=== PATIENT | female | born 1945 | race Asian ===

== ENCOUNTER 2019-02-14 13:53 | Emergency (ER) | payer MEDICARE, MEDICAID ==
[~2019-02-14] VITALS: Ht 160 cm; Wt 61.2 kg
--- NOTE | 2019-02-14 13:54 | Emergency Room Report ---
History of Present Illness General Chief Complaint: Multiple Trauma/Fall Source: Patient Present Illness HPI Patient is a 73-year-old female who presented after a mechanical fall. Patient had no loss of consciousness. She reportedly lost her balance while trying to fruit picker an object. She has prior history of some mild dementia. Unsure of her last tetanus vaccine. Denies any neck pain. Reports having some mild pain to the left side of her head. She struck her head on concrete. She denies any severe headache or neck pain or low back pain. She had been ambulatory after the fall. Allergies: Coded Allergies: No Known Allergies (Unverified , 02/14/19) Patient History Past Medical History: see triage record Last Menstrual Period: N/A Reviewed Nursing Documentation: PMH: Agreed; PSxH: Agreed Nursing Documentation-PMH Hx Diabetes: Yes History Of Psychiatric Problem: Yes - Dementia Review of Systems All Other Systems: negative except mentioned in HPI Physical Exam Vital Signs Date Time Temp Pulse Resp B/P (MAP) Pulse Ox O2 Delivery O2 Flow Rate FiO2 02/14/19 13:45 98.1 72 15 126/74 (91) 98 Room Air Sp02 EP Interpretation: reviewed, normal General Appearance: normal inspection, well appearing, no apparent distress, alert, GCS 15 Head: atraumatic ENT: normal ENT inspection, hearing grossly normal, normal voice Neck: normal inspection, full range of motion, supple, no bony tend Respiratory: normal inspection, lungs clear, normal breath sounds, no respiratory distress, no retraction, no wheezing Cardiovascular #1: regular rate, rhythm, no edema Gastrointestinal: normal inspection, normal bowel sounds, non tender, soft, no guarding, no hernia Genitourinary: no CVA tenderness Musculoskeletal: normal inspection, back normal, normal range of motion Neurologic: alert, motor strength/tone normal, printmaker III-XII nml as tested, EOM palsy, oriented x3, responsive, speech normal, normal inspection Psychiatric: normal inspection, judgement/insight normal, mood/affect normal Skin: laceration - Superficial laceration to the left side of her forehead 2 cm , other Procedures Laceration/Wound Repair Laceration/Wound Repair : Consent: Verbal Wound Location: face Wound's Depth, Shape: superficial Wound Length (cm): 2 Wound Explored: clean Irrigated w/ Saline (ccs): 30 Wound Repaired With: Dermabond Layer Closure?: No Patient Tolerated: Well Complications: None Medical Decision Making Diagnostic Impression: Primary Impression: Fall ER Course Patient presented after a fall. Differential diagnosis include was not limited to fracture, contusion, skull fracture among others. Because of complexity of patient's case imaging studies were ordered. patient was noted to have injury to her head. Has small laceration to the left side of her scalp. CT imaging showed atrophic changes without evident fracture or intracranial hemorrhage. She was not noted to be on anticoagulation. Patient laceration was closed with Dermabond. Patient tolerated this well. Patient be discharged home. She is to follow-up for recheck in 3 to 4 days. She is to return if she has any worsening of mental status, persistent vomiting, or other concerns. Last Vital Signs Date Time Temp Pulse Resp B/P (MAP) Pulse Ox O2 Delivery O2 Flow Rate FiO2 02/14/19 13:45 98.1 72 15 126/74 (91) 98 Room Air Status: improved Disposition: HOME, SELF-CARE Condition: Stable Dino Guerra MD Feb 14, 2019 13:54
[2019-02-14 13:55] VITALS: BP 126/74
--- NOTE | 2019-02-14 13:58 | NUR ---
ED Nurse Note: PT ARRIVED WITH RA 29 D/T SLIP AND FALL AT [facility]. FALL WITNESS BY [facility] STAFF. PT HAS LEFT UPPER HEAD LACERATION ABOUT HALF AN INCH. SITE IS NOT ACTIVELY BLEEDING. FAMILY AT BEDSIDE. PT IS AOX4
[2019-02-14] MEDS ORDERED: Tetanus/Diptheria/Pertussis IM ONE (14:15)
[2019-02-14] MEDS ORDERED: Acetaminophen 500mg (ES) tab ORAL ONE (14:15)
--- NOTE | 2019-02-14 14:19 | NUR ---
ED Nurse Note: PT TAKEN FOR HEAD CT
--- NOTE | 2019-02-14 14:26 | NUR ---
ED Nurse Note: PT RETURNED FROM CT, CT COMPLETED
[2019-02-14] MEDS ORDERED: UNOBMED (14:38)
--- NOTE | 2019-02-14 14:41 | NUR ---
ED Nurse Note: pt began saturating at 88%, placed pt on 2 L nasal cannula.
--- NOTE | 2019-02-14 15:18 | Diagnostic Imaging Report ---
EXAM: CT Head Without Intravenous Contrast CLINICAL HISTORY: PAIN TECHNIQUE: Axial computed tomography images of the head/brain without intravenous contrast. CTDI is 62.70 mGy and DLP is 1300.90 mGy-cm. One or more of the following dose reduction techniques were used: automated exposure control, adjustment of the mA and/or kV according to patient size, use of iterative reconstruction technique. COMPARISON: No relevant prior studies available. FINDINGS: Brain: Generalized parenchymal volume loss, likely age-related. Periventricular white matter hypodensities. No evidence of acute intracranial hemorrhage. No mass effect or midline shift. Ventricles: Unremarkable. No ventriculomegaly. Bones/joints: Unremarkable. No acute fracture. Soft tissues: Unremarkable. Sinuses: Unremarkable as visualized. No acute sinusitis. Mastoid air cells: Unremarkable as visualized. No mastoid effusion. Vascular: Atherosclerotic calcifications within the cavernous portions of bilateral ICAs. IMPRESSION: 1. No acute intracranial findings. 2. Periventricular white matter hypodensities, likely related to chronic small vessel disease changes. 3. Generalized cerebral parenchymal volume loss, likely age-related.
[2019-02-14] MEDS ORDERED: ACETAMINOPHEN500 M3 ORAL (15:30)
--- NOTE | 2019-02-14 15:32 | Diagnostic Imaging Report ---
EXAM: XR Left Wrist Complete, 3 or More Views CLINICAL HISTORY: PAIN TECHNIQUE: Frontal, lateral and oblique views of the left wrist. COMPARISON: No relevant prior studies available. FINDINGS: Bones/joints: No acute displaced fracture or dislocation identified. Degenerative narrowing at the thumb carpometacarpal joint. Degenerative narrowing at the radiocarpal joint. Diffuse osseous demineralization/osteopenia. Soft tissues: Unremarkable. No radiopaque foreign body. IMPRESSION: 1. No acute displaced fracture or dislocation identified. 2. Degenerative narrowing at the thumb carpometacarpal joint. 3. Degenerative narrowing at the radiocarpal joint. 4. Diffuse osseous demineralization/osteopenia.
[2019-02-14 15:35] VITALS: BP 117/74
--- NOTE | 2019-02-14 15:35 | NUR ---
ER DISCHARGE NOTE: Patient is cleared to be discharged per ERMD, pt is aox4, on room air, with stable vital signs. pt was given dc instructions, pt was able to verbalize understanding, pt id band removed. pt is able to ambulate with steady gait; pt accompanied by family member. pt took all belongings.
== END 2019-02-14 15:35 | disposition home or self-care (01) ==
LOC: EDBD 13:53 → EMR 14:43
DX: R51 Headache (principal); S01.81XA Laceration without foreign body of other part of head, initial encounter; Z23 Encounter for immunization; F03.90 Unspecified dementia, unspecified severity, without behavioral disturbance, psychotic disturbance, mood disturbance, and anxiety; E11.9 Type 2 diabetes mellitus without complications
CPT/HCPCS: 70450; 90471; 90715; 99284